=== PATIENT | female | born 1960 | race Caucasian/White ===

== ENCOUNTER 2016-11-02 14:30 | Emergency (ER) | payer MEDICAID, OTHER ==
[~2016-11-02] VITALS: Ht 157.5 cm; Wt 89.0 kg
[~2016-11-02 14:30] MED LIST: ASPI-535 PO; ASPI-664 PO; CALC-277 PO; CIPR500T4 PO; IBUP-1542 PO; LOSA1TAB20 PO; LOSA1TAB21 PO; METF500T4 PO; METR500T PO; OMEP40CA6 PO; ONDA4TAB14 PO; ONDA4TAB8 PO; PANT40TA3 PO
[2016-11-02 14:34] VITALS: Ht 157.5 cm; Wt 89.0 kg
[2016-11-02 18:57] VITALS: TEMP 98.3
--- NOTE | 2016-11-02 19:07 | ERD ---
ER Documentation Chief Complaint Date/Time DATE: 11/02/16 TIME: 19:05 Chief Complaint ap x 3 mos, drainage from umbilicus since yesterday HPI Patient is a 56-year-old female who presents with gradual onset, constant, moderate, dull right lower quadrant pain for 3 months. She has not seen a doctor previously for this complaint. She reports that last night and this morning she had discharge from her umbilicus of a foul-smelling yellow material. She denies fever or vomiting. She denies dysuria or flank pain. ROS All systems reviewed and are negative except as per history of present illness. Medications Home Meds Reported Medications Fenofibrate, Micronized (Fenofibrate) 134 Mg Capsule, 134 MG PO DAILY, CAP 11/02/16 Metformin Hcl* (Metformin Hcl*) 1,000 Mg Tablet, 1000 MG PO WITH BREAKFAST, #30 TAB 11/02/16 Ibuprofen* (Motrin*) 600 Mg Tab, 600 MG PO TID, TAB 12/28/15 Losartan-Hydrochlorothiazide (Losartan-HCTZ) 100-12.5 Mg Tab, 1 TAB PO DAILY, TAB 12/28/15 Omeprazole* (Omeprazole*) 40 Mg Capsule.dr, 40 MG PO QAM, #30 CAP 07/20/15 Discontinued Reported Medications Losartan-Hydrochlorothiazide (Losartan-HCTZ) 100-25 Mg Tab, 1 TAB PO DAILY, TAB 01/26/16 Ibuprofen* (Ibuprofen*) 600 Mg Tablet, 600 MG PO Q8 Y for PAIN AND/OR INFLAMMATION, TAB 01/26/16 Aspirin* (Aspirin* EC) 81 Mg Tablet.dr, 81 MG PO DAILY, TAB 01/26/16 Ondansetron Hcl* (Zofran*) 4 Mg Tablet, 8 MG PO Q8 Y for NAUSEA, TAB 12/28/15 Pantoprazole* (Protonix*) 40 Mg Tablet.dr, 40 MG PO DAILY, TAB 12/28/15 Calcium Carbonate/Vitamin D3 (OYSTER SHELL 500 MG + VIT D TB) 1 Each Tablet, 1 TAB PO DAILY, TAB 12/28/15 Omeprazole* (Omeprazole*) 40 Mg Capsule.dr, 40 MG PO DAILY, #30 CAP 12/28/15 Metformin* (Glucophage*) 500 Mg Tab, 500 MG PO DAILY, #60 TAB 12/28/15 Metformin Hcl* (Metformin Hcl*) 500 Mg Tablet, 500 MG PO WITH BREAKFAST, #30 TAB 07/20/15 Aspirin Ec (Aspir 81) 81 Mg Tablet.dr, 81 MG PO DAILY, TAB 07/11/14 Discontinued Scripts Ondansetron (Ondansetron Odt) 4 Mg Tab.rapdis, 4 MG PO Q6H Y for NAUSEA AND/OR VOMITING, #10 TAB Prov:GLENN HOLDER MD 12/28/15 Ciprofloxacin Hcl* (Ciprofloxacin Hcl*) 500 Mg Tablet, 500 MG PO BID for 7 Days , TAB Prov:GLENN HOLDER MD 12/28/15 Metronidazole* (Flagyl*) 500 Mg Tablet, 500 MG PO TID for 7 Days, TAB Prov:GLENN HOLDER MD 12/28/15 Allergies Allergies: Coded Allergies: No Known Allergies (Verified Allergy, Mild, 11/02/16) morphine (Verified Adverse Reaction, Unknown, TOUNGE TIGHT AND COULDN'T TALK, 11/02/16) PER PT PMhx/Soc Past medical history: Diabetes mellitus, hypertension, hyperlipidemia Past surgical history: Cholecystectomy, section Social history: Denies tobacco, alcohol or illicit drugs History of Surgery: Yes (L knee Sx.) Anesthesia Reaction: No Hx Neurological Disorder: No Hx Respiratory Disorders: No Hx Cardiac Disorders: Yes (HTN) Hx Psychiatric Problems: No Hx Miscellaneous Medical Probl: No (DM, high cholesterol) Hx Alcohol Use: No Hx Substance Use: No Hx Tobacco Use: No Smoking Status: Never smoker FmHx Family History: diabetes, No coronary disease Physical Exam Vitals Vital Signs Date Time Temp Pulse Resp B/P Pulse Ox O2 Delivery O2 Flow Rate FiO2 11/02/16 21:19 70 17 121/76 100 Room Air 11/02/16 18:57 98.3 81 12 147/101 99 Room Air 11/02/16 14:34 98.3 80 18 153/90 99 Physical Exam Const: Alert, no acute distress Head: Atraumatic Eyes: Normal Conjunctiva, No pallor, no icterus ENT: Normal External Ears, Nose and Mouth. Mucous membranes moist Neck: Full range of motion..~ No meningismus. Resp: Clear to auscultation bilaterally, No wheezes, no rales Cardio: Regular rate and rhythm, no murmurs Abd: Soft, Tenderness in the right lower quadrant with voluntary guarding, no rebound. No distention. Normal appearing umbilicus without discharge or erythema. Skin: No petechiae or rashes Back: No midline or flank tenderness Ext: No cyanosis, or edema Neur: Awake and alert, Cranial nerves II through XII intact bilaterally, strength and sensation full in 4 extremity's. Psych: Normal Mood and Affect Result Diagram: 11/02/16 19011/02/161900 Results 24 hrs Laboratory Tests Test 11/02/16 18:49 11/02/16 18:50 11/02/16 19:01 Bedside Glucose 91mg/dL Urine Color YELLOW Urine Clarity CLEAR Urine pH 5.0 Urine Specific [place] 1.024 Urine Ketones NEGATIVEmg/dL Urine Nitrite NEGATIVEmg/dL Urine Bilirubin NEGATIVEmg/dL Urine Urobilinogen NEGATIVEmg/dL Urine Leukocyte Esterase NEGATIVELeu/ul Urine Microscopic RBC 1/HPF Urine Microscopic WBC 1/HPF Urine Hemoglobin 1+mg/dL Urine Glucose NEGATIVEmg/dL Urine Total Protein NEGATIVEmg/dl White Blood Count 9.310^3/ul Red Blood Count 4.5210^6/ul Hemoglobin 13.8g/dl Hematocrit 41.1% Mean Corpuscular Volume 90.9fl Mean Corpuscular Hemoglobin 30.5pg Mean Corpuscular Hemoglobin Concent 33.6g/dl Red Cell Distribution Width 12.3% Platelet Count 08103^3/UL Mean Platelet Volume 9.3fl Neutrophils % 45.6% Lymphocytes % 41.1% Monocytes % 8.7% Eosinophils % 4.0% Basophils % 0.5% Nucleated Red Blood Cells % 0.0/100WBC Neutrophils # 4.210^3/ul Lymphocytes # 3.810^3/ul Monocytes # 0.810^3/ul Eosinophils # 0.410^3/ul Basophils # 0.110^3/ul Nucleated Red Blood Cells # 0.010^3/ul Sodium Level 140mmol/L Potassium Level 4.1mmol/L Chloride Level 103mmol/L Carbon Dioxide Level 28mmol/L Anion Gap 13 Blood Urea Nitrogen 21mg/dl Creatinine 0.69mg/dl Glucose Level 99mg/dl Calcium Level 9.6mg/dl Total Bilirubin 0.1mg/dl Direct Bilirubin 0.00mg/dl Indirect Bilirubin 0.1mg/dl Aspartate Amino Transf (AST/SGOT) 59IU/L Alanine Aminotransferase (ALT/SGPT) 100IU/L Alkaline Phosphatase 107IU/L Total Protein 8.0g/dl Albumin 4.6g/dl Globulin 3.40g/dl Albumin/Globulin Ratio 1.35 Lipase 162U/L Procedures/MDM MDM: Patient is a 56-year-old female who presents with constant right lower quadrant pain for 3 months. She states that it is fairly is currently moderate to severe. She does have mild voluntary guarding on exam. Although the patient has chronic pain and I have low suspicion for appendicitis due to that fact, the patient has not had previous workup, and I believe a 3 month period of conservative management without resolution warrants further workup. A CT scan was performed and shows no evidence of appendicitis or pelvic mass. There is no evidence of bowel obstruction. There is no evidence of nephrolithiasis. Urinalysis is unremarkable and there is no elevated white blood cell count. The patient is advised to follow closely with her PMD for possible GI referral. There is not report of constipation, so no laxatives were given. Departure Diagnosis: Primary Impression: Abdominal pain Abdominal location: right lower quadrant Qualified Code: R10.31 - Right lower quadrant abdominal pain Condition: Stable CIERRA JOHNSTON MD Nov 02, 2016 19:07
[2016-11-02 19:11] LABS: BASOPHIL # 0.1 10^3/ul (0.0-0.1); BASOPHILS % 0.5 % (0.0-2.0); EOSINOPHILS # 0.4 10^3/ul (0.0-0.5); HEMATOCRIT 41.1 % (37.0-47.0); HEMOGLOBIN 13.8 g/dl (12.0-16.0); LYMPHOCYTES # 3.8 10^3/ul (0.8-2.9); LYMPHOCYTES % 41.1 % (15.0-51.0); MEAN CORPUSCULAR HEMOGLOBIN 30.5 pg (29.0-33.0); MEAN CORPUSCULAR HGB CONC 33.6 g/dl (32.0-37.0); MEAN CORPUSCULAR VOLUME 90.9 fl (82.0-101.0); MEAN PLATELET VOLUME 9.3 fl (7.4-10.4); MONOCYTE # 0.8 10^3/ul (0.3-0.9); MONOCYTES % 8.7 % (0.0-11.0); NEUTROPHIL # 4.2 10^3/ul (1.6-7.5); NEUTROPHILS % 45.6 % (39.0-77.0); PLATELET COUNT 280 10^3/UL (140-415); RED BLOOD COUNT 4.52 10^6/ul (4.20-5.40); RED CELL DISTRIBUTION WIDTH 12.3 % (11.5-14.5); WHITE BLOOD COUNT 9.3 10^3/ul (4.8-10.8)
[2016-11-02] MEDS ORDERED: METF1000 PO (19:21)
[2016-11-02] MEDS ORDERED: FENO134C PO (19:22)
[2016-11-02 19:24] LABS: ADD UMIC YES; UR ASCORBIC ACID NEGATIVE (NEGATIVE); UR BILIRUBIN (Dip) NEGATIVE (NEGATIVE); UR BLOOD (Dip) 1+ mg/dL (NEGATIVE); UR CLARITY CLEAR (CLEAR); UR COLOR YELLOW (YELLOW); UR GLUCOSE (Dip) NEGATIVE (NEGATIVE); UR KETONES (Dip) NEGATIVE (NEGATIVE); UR LEUKOCYTE ESTERASE (Dip) NEGATIVE Leu/ul (NEGATIVE); UR NITRITE (Dip) NEGATIVE (NEGATIVE); UR RBC 1 /HPF (0-5); UR SPECIFIC GRAVITY (Dip) 1.024 (1.003-1.030); UR TOTAL PROTEIN (Dip) NEGATIVE (NEGATIVE); UR UROBILINOGEN (Dip) NEGATIVE (NEGATIVE)
[2016-11-02 19:39] LABS: ALBUMIN 4.6 g/dl (3.3-4.9); ALBUMIN/GLOBULIN RATIO 1.35; BILIRUBIN,INDIRECT 0.1 mg/dl (0-1.1); BILIRUBIN,TOTAL 0.1 mg/dl (0.2-1.3); CALCIUM 9.6 mg/dl (8.4-10.2); CREATININE 0.69 mg/dl (0.44-1.00); POTASSIUM 4.1 mmol/L (3.5-5.1)
--- NOTE | 2016-11-02 19:42 | RADRPT ---
PROCEDURE: CT Abdomen and Pelvis without contrast. CLINICAL INDICATION: Abdominal and pelvic pain. TECHNIQUE: CT scan of the abdomen and pelvis without contrast was performed. Coronal and sagittal reformatted images were obtained from the axial source images. Images were reviewed on a [employer] [place] PACS workstation. Total exam DLP is 1141.15 mGy-cm. CTDIvol is 18.86 mGy. One or more of the following dose reduction techniques were used: Automated exposure control, adjustment of the mA and/ or kV according to patient size, use of iterative reconstruction technique. COMPARISON: CT scan of the abdomen and pelvis dated 04/01/2015. FINDINGS: There is a benign calcified granuloma in the left lung base. The lung bases are otherwise normal. T here is no pleural effusion. The liver is normal in size and diffusely decreased attenuation consistent with fatty metamorphosis. There is no focal hepatic lesion. The gallbladder is surgically absent with clips noted in the gallbladder. The spleen is normal in size. There is no focal splenic lesion. Both adrenals are normal with no enlargement or mass. The pancreas is unremarkable with no mass or evidence of pancreatitis. There is no renal mass or hydronephrosis. There is no renal calculus or ureteral calculus. The abdominal aorta is not dilated. There is calcification in the aorta consistent with atherosclero sis. There is no retroperitoneal lymphadenopathy or mass. There is no pelvic lymphadenopathy or mass. The bladder and distal ureters are normal. The periappendiceal region is unremarkable with no evidence of appendicitis. The appendix is well se en and appears normal. There is diverticulosis of the colon without evidence of diverticulitis. The bowel and mesentery are otherwise normal. There is no free fluid or free gas. The osseous structures are unremarkable with no fracture or lytic lesion. IMPRESSION: 1. Benign calcified granuloma at the left lung base. 2. Fatty metamorphosis of the liver. 3. Status post cholecystectomy. 4. Atherosclerosis. 5. Normal appendix. 6. No urinary tract calculus or hydronephrosis. 7. Diverticulosis of the colon without evidence of diverticulitis. 8. Otherwise unremarkable study. RPTAT: QQ .Choco Arriaza MD, MD Date Time Electronically viewed and signed by .Choco Arriaza MD, on 11/02/2016 19:42 .R/
[2016-11-02 21:19] VITALS: BP 121/76; PULSE 70; RESP 17
== END 2016-11-02 21:28 | disposition home or self-care (01) ==
LOC: E/R 14:30
DX: R10.31 Right lower quadrant pain (principal); I10 Essential (primary) hypertension; E11.9 Type 2 diabetes mellitus without complications; Z79.82 Long term (current) use of aspirin; Z79.84 Long term (current) use of oral hypoglycemic drugs
CPT/HCPCS: 36415; 74176; 80053; 81001; 82962; 83690; 85025; Z7502

== ENCOUNTER 2016-12-02 12:12 | Emergency (ER) | payer MEDICAID ==
[~2016-12-02] VITALS: Ht 160 cm; Wt 84.0 kg
[~2016-12-02 12:12] MED LIST changes: -ASPI-535 PO; -ASPI-664 PO; -CALC-277 PO; -CIPR500T4 PO; +FENO134C PO; -LOSA1TAB20 PO; +METF1000 PO; -METF500T4 PO; -METR500T PO; -ONDA4TAB14 PO; -ONDA4TAB8 PO; -PANT40TA3 PO
[2016-12-02 12:15] VITALS: Ht 160 cm; Wt 84.0 kg
[2016-12-02] MEDS ORDERED: PSEU120T51 PO (14:12)
--- NOTE | 2016-12-02 14:51 | ERD ---
ER Documentation Chief Complaint Chief Complaint hearing problems from left ear x 2 weeks HPI 56-year-old female with history of hypertension, diabetes mellitus type 2, hyperlipidemia presents with a chief complaint of tinnitus in the left ear 2 weeks. Symptoms improved with auto inflation. Patient has not taken any medications to relieve the symptoms. No aggravating factors. Denies fever, chills, cough, abdominal pain, chest pain, shortness of breath. Has had a upper respiratory infection for the past few weeks. No medications or antibiotics taken to relieve the symptoms. States that the congestion has recently resolved. Patient has no other complaints and describes no other associated manifestations. Nursing notes have been reviewed and are consistent with history given. ROS All systems reviewed and are negative except as per history of present illness. Medications Home Meds Active Scripts Pseudoephedrine Hcl (Sudafed 12 Hour) 120 Mg Tablet.sa, 120 MG PO BID for 7 Days Prov:YANNI RYAN PA-C 12/02/16 Reported Medications Fenofibrate, Micronized (Fenofibrate) 134 Mg Capsule, 134 MG PO DAILY, CAP 11/02/16 Metformin Hcl* (Metformin Hcl*) 1,000 Mg Tablet, 1000 MG PO WITH BREAKFAST, #30 TAB 11/02/16 Ibuprofen* (Motrin*) 600 Mg Tab, 600 MG PO TID, TAB 12/28/15 Losartan-Hydrochlorothiazide (Losartan-HCTZ) 100-12.5 Mg Tab, 1 TAB PO DAILY, TAB 12/28/15 Omeprazole* (Omeprazole*) 40 Mg Capsule.dr, 40 MG PO QAM, #30 CAP 07/20/15 Allergies Allergies: Coded Allergies: morphine (Verified Allergy, Severe, TONGUE TIGHT AND COULDN'T TALK, ) PER PT PMhx/Soc History of Surgery: Yes (L knee Sx.) Anesthesia Reaction: No Hx Neurological Disorder: No Hx Respiratory Disorders: No Hx Cardiac Disorders: Yes (HTN) Hx Psychiatric Problems: No Hx Miscellaneous Medical Probl: No (DM, high cholesterol) Hx Alcohol Use: No Hx Substance Use: No Hx Tobacco Use: No Smoking Status: Never smoker Physical Exam Vitals Vital Signs Date Time Temp Pulse Resp B/P Pulse Ox O2 Delivery O2 Flow Rate FiO2 12/02/16 12:15 97.9 80 18 130/77 98 Physical Exam Const: Overweight 56-year-old female no acute distress. Ears: Retracted left tympanic membrane. Right otoscope exam unremarkable. External ear/auricle unremarkable. Oral: No oral edema visualized. Mucous membranes moist and pink. Neck: No cervical lymphadenopathy, masses or goiter palpated. Non- tender. Trachea midline. Supple ~ No meningismus. Neur: Finger-rub test unremarkable. Awake, alert and oriented x3. Neurovascularly intact bilaterally. Pulm: No dyspnea, stridor, tripoding or drooling. Good air movement. Clear to auscultation bilaterally. Nose: Normal external nose; no discharge, septal deviation, or sinus tenderness. Head: Normocephalic, Atraumatic. Eyes: Non-injected; No scleral erythema, discharge or foreign body. EOMI and TONY bilaterally. Cardio: Regular rate and rhythm; No murmurs, gallops or rubs auscultated. Radial and posterior tibial pulses 2+ bilaterally. Capillary refill less than 2 seconds. Abd: Soft, non tender, non distended. No guarding, masses. Normal bowel sounds. No McBurney's point or suprapubic tenderness. MS: Normal motor strength, normal tone with gross examination. Skin: No petechiae or rashes. Good turgor. Back: No midline, flank or CVA tenderness. Ext: No cyanosis or edema. Normal movement of all extremities grossly observed. Psych: Normal Mood and Affect. Procedures/MDM Otherwise healthy 56-year-old female presenting with a chief complaint of tinnitus 2 weeks. Appears without lesion. No signs or symptoms of systemic illness for serious bacterial infection. Most likely diagnosis is congestion causing tinnitus in the left ear. Patient will be discharged with decongestants. I have spoke with the patient regarding their condition and future management. They have verbally responded that they understand their status and treatment plan. The patients vitals are stable, and their current condition is appropriate for discharge. The patient will be given discharge instructions with return precautions. Departure Diagnosis: Primary Impression: Tinnitus, left ear Condition: Stable Patient Instructions: Tinnitus (Ringing in the Ears) Referrals: THONY THOMAS MD (PCP) Additional Instructions: Lacey un seguimiento con nichole PCP dentro de los prximos 1-3 pena para tala evaluaci n ms completa y tala posible derivacin a un especialista. Devuelva el departamento de emergencia inmediatamente si los sntomas empeoran o cambian. Si tiene alguna pregunta con respecto a los medicamentos, consulte con nichole farmac utico o con nosotros antes de salir. Si se producen reacciones adversas mientras sven vanessa medicamentos, suspenda el tratamiento y regrese inmediatamente al servicio de urgencias. [place] vanessa medicamentos segn las indicaciones y complete el curso completo del tratamiento. YANNI RYAN PA-C Dec 02, 2016 14:51
== END 2016-12-02 14:28 | disposition home or self-care (01) ==
LOC: FTE 12:12
DX: H93.12 Tinnitus, left ear (principal); I10 Essential (primary) hypertension; E11.9 Type 2 diabetes mellitus without complications; Z79.84 Long term (current) use of oral hypoglycemic drugs
CPT/HCPCS: 99283

== ENCOUNTER 2017-12-17 14:11 | Emergency (ER) | END 2017-12-17 20:16 | disposition home or self-care (01) ==

== ENCOUNTER 2018-07-21 05:48 | Day surgery (SDC) | payer OTHER ==
[~2018-07-21] VITALS: Ht 157.5 cm; Wt 81.7 kg
[~2018-07-21 05:48] MED LIST changes: -LOSA1TAB21 PO; +LOSA1TAB28 PO; -METF1000 PO; +METF100010 PO; +ONDA4TAB8 PO
[2018-07-21 06:23] VITALS: Ht 157.5 cm; Wt 81.7 kg
[2018-07-21 07:00] VITALS: BP 137/88; PULSE 73; RESP 11
[2018-07-21] MEDS ORDERED: ATORVASTATIN (07:07)
--- NOTE | 2018-07-21 07:47 | PREAC ---
Date/Time of Note Date/Time of Note DATE: 07/21/18 TIME: 07:45 Anesthesia Eval and Record Evaluation Time Pre-Procedure Interview DATE: 07/21/18 TIME: 07:45 Age 58 Sex female NPO: 8 hrs Preoperative diagnosis Abdominal Pain Planned procedure Colonoscopy Past Medical History Past Medical History: Includes Cardio: HTN, Dyslipidemia Endo: Diabetes Surgery & Anesthesia Issues No known issue Meds Anticoagulation: No Beta Duglas within 24 hr: No Reason Beta Duglas not given: Pt. not on B-Duglas Reported Medications [Atorvastatin] No Conflict Check 07/21/18 Metformin Hcl* (Metformin Hcl*) 1,000 Mg Tablet, 1000 MG PO WITH BREAKFAST, #30 TAB 11/02/16 Losartan-Hydrochlorothiazide (Losartan-HCTZ) 100-12.5 Mg Tab, 1 TAB PO DAILY, TAB 12/28/15 Omeprazole* (Omeprazole*) 40 Mg Capsule.dr, 40 MG PO QAM, #30 CAP 07/20/15 Discontinued Reported Medications Fenofibrate, Micronized (Fenofibrate) 134 Mg Capsule, 134 MG PO DAILY, CAP 11/02/16 Ibuprofen* (Motrin*) 600 Mg Tab, 600 MG PO TID, TAB 12/28/15 Discontinued Scripts Ondansetron Hcl* (Zofran*) 4 Mg Tablet, 4 MG PO Q6H for NAUSEA AND/OR VOMITING, #12 TAB Prov:PETR OSBORNE MD 12/17/17 Meds reviewed: Yes Allergies Coded Allergies: morphine (Verified Allergy, Severe, TONGUE TIGHT AND COULDN'T TALK, 07/21/18) PER PT Allergies Reviewed: Yes Labs/Studies Labs Reviewed: Reviewed by anesthesiologist test: N/A Pre-procedure Exam Last vitals Vital Signs Date Temp Pulse Resp B/P (MAP) Pulse Ox O2 O2 Flow FiO2 Time Delivery Rate 07/21/18 98.2 73 11 137/88 100 Room Air 07:00 (104) Airway: Adequate mouth opening Mallampati: Mallampati II Teeth: Normal Lung: Normal Heart: Normal ASA Physical Status ASA physical status: 3 Emergency: None Planned Anesthetic General/MAC: MAC Pre-operative Attestations Prior to commencing anesthesia and surgery, the patient was re-evaluated, there was verification of: *The patient's identity *The results of appropriate recent lab work and preoperative vital signs *The above evaluation not changing prior to induction *Anesthetic plan, risk benefits, alternative and complications discussed with patient/family; questions answered; patient/family understands, accepts and wishes to proceed. MAN MCCLURE MD Jul 21, 2018 07:47
--- NOTE | 2018-07-21 08:00 | PAC ---
Date/Time of Note Date/Time of Note DATE: 07/21/18 TIME: 08:00 Post-Anesthesia Notes Post-Anesthesia Note Last documented vital signs Vital Signs Date Temp Pulse Resp B/P (MAP) Pulse Ox O2 O2 Flow FiO2 Time Delivery Rate 07/21/18 98.2 73 11 137/88 100 Room Air 07:00 (104) Activity: WNL Respiratory function: WNL Cardiovascular function: WNL Mental status: Baseline Pain reasonably controlled: Yes Hydration appropriate: Yes Nausea/Vomiting absent: Yes MAN MCCLURE MD Jul 21, 2018 08:00
[2018-07-21 08:26] VITALS: BP 127/85; PULSE 73; RESP 18
--- NOTE | 2018-07-21 10:24 | CONS ---
DATE OF ADMISSION: 07/21/2018 DATE OF CONSULTATION: PATIENT NAME: LETICIA SOUSA TYPE OF CONSULTATION: Preoperative gastroenterology Dear Dr. Ovalle: I thank you very much for this kind referral. HISTORY OF PRESENT ILLNESS: Ms. Leticia Mckeon is a 58-year-old female patient who has been refe rred to me for further evaluation of abdominal pain. The patient states she has got epigastric pain as well as pain in the right lower quadrant. She has been taking omeprazole without any relief. The patient underwent colonoscopy 4 years ago, and she was noted to have diverticulosis of the colon. N o colon neoplasm was identified. Not on nonsteroidal anti-inflammatory agents. She is status post c holecystectomy. Has history of fatty liver. She has hypertension. She is a diabetic. No heart dis ease, lung problem or kidney disease. Has hyperlipidemia. SOCIAL HISTORY: Nonsmoker. No alcohol abuse. FAMILY HISTORY: No family history of gastrointestinal tract neoplasm. ALLERGIES: NO DRUG ALLERGIES. MEDICATIONS: 1. Losartan. 2. Metformin. 3. Omeprazole. 4. Atorvastatin. 5. Aspirin 81 mg. PHYSICAL EXAMINATION: VITAL SIGNS: She is 5 feet 2 inches tall and weighs 175 pounds. HEART: Normal heart sounds. LUNGS: Clear. ABDOMEN: Soft, no masses. Normal bowel sounds. NEUROLOGIC: Normal neurological exam. IMPRESSION: 1. Upper abdominal pain, not responding to therapy with omeprazole. 2. Right lower quadrant abdominal pain. 3. The patient had colonoscopy 4 years ago, and she was noted to have diverticulosis of the colon an d no colon neoplasm was identified. 4. The patient had abdominal ultrasound and she was noted to have fatty liver. 5. Status post cholecystectomy. 6. Hypertension. 7. Diabetes mellitus. 8. Hyperlipidemia. PLAN: 1. Continue omeprazole. 2. Endoscopic examination for further evaluation of upper abdominal pain. 3. Would recommend gynecological evaluation for right lower quadrant pain. 4. The patient was advised to lose weight, have a low-fat diet and good control of serum lipids gilmar use of the fatty liver. The procedure and possible complications are well explained to the patient. She understands and cons ents to the procedure. I thank you once again. With warmest personal regards, Dictated By: HECTOR TONEY/DEEPTHI Conf#: [id number] DID#: [id number]
== END 2018-07-21 12:43 | disposition home or self-care (01) ==
LOC: GIL 05:48
PROVIDERS: ATTEND Internal Medicine Gastroenterology
DX: K29.60 Other gastritis without bleeding (principal); K31.7 Polyp of stomach and duodenum; I10 Essential (primary) hypertension; E11.9 Type 2 diabetes mellitus without complications; E78.5 Hyperlipidemia, unspecified
CPT/HCPCS: 82962; 88305; 88312